=== PATIENT | male | born 1965 | race Hispanic/Latino ===

== ENCOUNTER 2020-12-04 18:49 | Emergency (ER) | payer SELFPAY | END 2020-12-04 19:42 | disposition home or self-care (01) | LOC: ERS 18:49 | DX: I10 Essential (primary) hypertension (principal) | CPT/HCPCS: 93005 ==

== ENCOUNTER 2021-01-02 10:14 | Emergency (ER) | payer MEDICAID, MEDICARE, SELFPAY | END 2021-01-02 11:26 | disposition home or self-care (01) | LOC: EDUNIT# 10:14 → ERS 10:14 | DX: T63.481A Toxic effect of venom of other arthropod, accidental (unintentional), initial encounter (principal); I10 Essential (primary) hypertension; Z79.899 Other long term (current) drug therapy | CPT/HCPCS: 99281 ==

== ENCOUNTER 2021-08-15 16:33 | Emergency (ER) | payer OTHER, SELFPAY | END 2021-08-15 16:56 | disposition home or self-care (01) | LOC: ERS 16:33 | DX: S80.211A Abrasion, right knee, initial encounter (principal); S40.211A Abrasion of right shoulder, initial encounter; I10 Essential (primary) hypertension; V23.4XXA Motorcycle driver injured in collision with car, pick-up truck or van in traffic accident, initial encounter; Y93.I9 Activity, other involving external motion | CPT/HCPCS: G0390 ==